=== PATIENT | male | born 1965 | race Caucasian/White ===

== ENCOUNTER 2016-07-20 14:30 | Emergency (ER) | payer OTHER ==
[2016-07-20 14:49] VITALS: BP 138/74
--- NOTE | 2016-07-20 15:31 | ED ---
Throat Pain/Nasal Congestion - HPI Summary HPI Summary: 50 yr old male with the complaint of left ear pain. HPI: The patient washed out ear wax three weeks ago left ear. He has had some discomfort for past few weeks , but no drainage, no change in hearing. The pain is intermittent, and not severe. No URI symptoms. No sore throat. He does have several fillings upper teeth left side as well, but no dental pain. He has not had fever. He has no other complaints. - History of Current Complaint Chief Complaint: UCEar Time Seen by Provider: 07/20/16 14:54 - Allergies/Home Medications Allergies/Adverse Reactions: Allergies Allergy/AdvReac Type Severity Reaction Status Date / Time No Known Allergies Allergy Verified 07/20/16 14:48 Home Medications: Home Medications NK [No Home Medications Reported] 07/20/16 [History Confirmed 07/20/16] PMH/Surg Hx/FS Hx/Imm Hx Previously Healthy: Yes Endocrine/Hematology History: Denies: Hx Diabetes Cardiovascular History: Denies: Hx Hypertension, Hx Pacemaker/ICD Respiratory History: Denies: Hx Asthma History: Denies: Hx Renal Disease Sensory History: Denies: Hx Hearing Aid Psychiatric History: Denies: Hx Panic Disorder Infectious Disease History: No Infectious Disease History: Denies: Hx Clostridium Difficile, Hx Hepatitis, Hx Human Immunodeficiency Virus (HIV), Hx of Known/Suspected MRSA, Hx Shingles, Hx Tuberculosis, Hx Known/ Suspected VRE, Hx Known/Suspected VRSA, History Other Infectious Disease, Traveled Outside the [place] in Last 30 Days - Family History Known Family History: Positive: Other - cancer - Social History Alcohol Use: None Substance Use Type: Reports: None Smoking Status (MU): Never Smoked Tobacco Review of Systems Constitutional: Negative Eyes: Negative Positive: Ear Ache. Negative: Dental Pain, Sore Throat, Nasal Discharge Cardiovascular: Negative Respiratory: Negative Gastrointestinal: Negative Genitourinary: Negative Musculoskeletal: Negative Skin: Negative Neurological: Negative All Other Systems Reviewed And Are Negative: Yes Physical Exam Triage Information Reviewed: Yes Vital Signs On Initial Exam: Initial Vitals Temp Pulse Resp BP Pulse Ox 98.1 F 78 16 138/74 97 07/20/16 14:45 07/20/16 14:45 07/20/16 14:45 07/20/16 14:45 07/20/16 14:45 Vital Signs Reviewed: Yes Appearance: Positive: Well-Appearing, No Pain Distress Skin: Positive: Warm Eyes: Positive: Normal ENT: Positive: Pharynx normal, TMs normal, Other - external ear canals WNL.. Negative: Pharyngeal erythema, Nasal congestion, Nasal drainage Dental: Positive: Other - multiple dental fillings, but no gingival cellulitis present. Respiratory/Lung Sounds: Positive: Clear to Auscultation Cardiovascular: Positive: Normal, RRR Neurological: Positive: Normal, Sensory/Motor Intact, Alert, Oriented to Person Place, Time, CN Intact II-III Diagnostics - Vital Signs Vital Signs Temp Pulse Resp BP Pulse Ox 07/20/16 14:45 98.1 F 78 16 138/74 97 - Laboratory Lab Statement: Any lab studies that have been ordered have been reviewed, and results considered in the medical decision making process. EENT Course/Dx - Course Course Of Treatment: 50 yr old male with no otitis media or externa. No sinus symptoms. No pharyngitis, and no dental findings save old fillings. He will follow up with his dentist to have panarex of his teeth, and also with his PMD. - Diagnoses Provider Diagnoses: Otalgia of left ear Discharge - Discharge Plan Condition: Good Disposition: HOME Patient Education Materials: Earache (ED) Referrals: [facility] [Outside]
== END 2016-07-20 15:20 | disposition home or self-care (01) ==
LOC: UCCORT 14:30
DX: H92.02 Otalgia, left ear (principal)
CPT/HCPCS: 99211; G0463

== ENCOUNTER 2019-06-16 20:28 | Emergency (ER) | payer OTHER ==
[2019-06-16 20:57] VITALS: BP 129/78
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
[2019-06-16 21:17] LABS: Influenza A Molecular Negative (Negative); Influenza B Molecular Negative (Negative)
--- NOTE | 2019-06-17 08:49 | UC ---
- Progress Note Progress Note: chest xray report: IMPRESSION: NO EVIDENCE FOR ACTIVE CARDIOPULMONARY DISEASE. Course/Dx - Diagnoses Provider Diagnoses: Viral illness Discharge ED - Sign-Out/Discharge Documenting (check all that apply): Patient Departure All imaging exams completed and their final reports reviewed: Yes - Discharge Plan Condition: Good Disposition: HOME Patient Education Materials: Upper Respiratory Infection (ED) Referrals: Annetta Mueller PA [Primary Care Provider] - Additional Instructions: Increase fluids, follow-up with your primary care provider if no improvement in 3 or 4 days. Definite follow-up regarding the use of breath with exertion with either your primary care provider or a lithographic stripper. If you develop worsening shortness of breath, chest pain or any worsening symptoms you are to call 911 and go to the emergency room immediately. - Billing Disposition and Condition Condition: GOOD Disposition: Home
== END 2019-06-16 21:57 | disposition home or self-care (01) ==
LOC: UCCORT 20:28
DX: B34.9 Viral infection, unspecified (principal); R06.02 Shortness of breath; R05 Cough; J02.9 Acute pharyngitis, unspecified
CPT/HCPCS: 71046; 87651; 99211; G0463